=== PATIENT | male | born 1945 | race Hispanic/Latino ===

== ENCOUNTER 2021-11-01 05:49 | Day surgery (SDC) | payer OTHER, MEDICARE ==
[2021-10-25 09:14] LABS: Hematocrit 41.1 % (35.5-45.6); Hemoglobin 13.8 gm/dl (11.8-15.2); Mean Corpuscular HGB Conc 34 % (32-34); Mean Corpuscular Volume 105 fl (84-94); Platelet Count 199 K/mm3 (140-440); Red Blood Count 3.93 M/mm3 (3.65-5.03); Red Cell Distribution Width 12.1 % (13.2-15.2)
[2021-10-25 09:30] LABS: Alanine Aminotransferase 14 units/L (7-56); Albumin 4.1 g/dL (3.9-5); Blood Urea Nitrogen 15 mg/dL (9-20); Hemolysis Index 3
[2021-10-25 09:51] LABS: BUN/Creatinine Ratio 21
[2021-11-01] MEDS ORDERED: LACTATED RINGERS 1,000 ML IV SCH (06:30)
[2021-11-01] MEDS ORDERED: BACTERIOSTATIC SODIUM CHLORIDE 0.9% 30 ML VIAL INFILTRATI ONE (06:34)
--- NOTE | 2021-11-01 07:27 | Anesthesia Day of Surgery ---
Anesthesia Day of Surgery - Day of Surgery Patient Examined: Yes Patient H&P Reviewed: Yes Patient is NPO: Yes
--- NOTE | 2021-11-01 07:27 | Anesthesia Consultation ---
Anesthesia Consult and Med Hx Date of service: 11/01/21 - Airway Anesthetic Teeth Evaluation: Good ROM Head & Neck: Adequate Mental/Hyoid Distance: Adequate Mallampati Class: Class III Intubation Access Assessment: Possibly Difficult - Pre-Operative Health Status ASA Pre-Surgery Classification: ASA3 Proposed Anesthetic Plan: General - Pulmonary Hx Smoking: No Hx Sleep Apnea: Yes (ONLY SLIGHT BUT SNORES-HIGH RISK ON INGRID PRESCREEN.) - Cardiovascular System Hx Hypertension: No - Central Nervous System Hx Back Pain: Yes (NECK,SHOULDER PAIN) Hx Psychiatric Problems: No - Endocrine Hx Renal Disease: Yes (bladder tumor/polyp,elevated K+, creatinine) - Hematic Hx Anemia: No Hx Sickle Cell Disease: No - Other Systems Hx Alcohol Use: No Hx Substance Use: No Hx Cancer: Yes (H/o prostate CA, s/p prostatectomy (2010), radiation)
[2021-11-01] MEDS ORDERED: fentaNYL 100 MCG/2 ML INJ ONE (07:30)
[2021-11-01] MEDS ORDERED: ROCURONIUM 50 MG/5 ML INJ IV ONE (07:30)
[2021-11-01] MEDS ORDERED: LIDOCAINE MPF (2%) 20 MG/1 ML VIAL 5 ML ONE (07:30)
[2021-11-01] MEDS ORDERED: propofoL 200 MG/20 ML VIAL IV ONE (07:30)
[2021-11-01] MEDS ORDERED: HYDROmorphone 1 MG/1 ML INJ IV PRN ×2 (07:43)
[2021-11-01] MEDS ORDERED: ONDANSETRON 4 MG/2 ML INJ IV PRN (07:43)
[2021-11-01] MEDS ORDERED: ceFAZolin/STERILE WATER 2 GM/20 ML SYRINGE IV NR (07:52)
[2021-11-01] MEDS ORDERED: ceFAZolin/Water 2 GM/20 ML 2 GM/20 ML SYRINGE IV ONE (07:55)
[2021-11-01] MEDS ORDERED: FAMOTIDINE 20 MG/2 ML INJ IV ONE (08:00)
[2021-11-01] MEDS ORDERED: ONDANSETRON 4 MG/2 ML INJ ONE (08:43)
--- NOTE | 2021-11-01 09:18 | Operative Report ---
DATE OF SURGERY: 11/01/2021 PREOPERATIVE DIAGNOSIS: Bladder tumor. POSTOPERATIVE DIAGNOSIS: Bladder tumor. OPERATIVE PROCEDURES: Cystoscopy and fulguration of an approximately 0.75 cm tumor. ATTENDING: Hernan Lau MD GEOTECHNICAL ENGINEER: None. ANESTHESIA: General. ESTIMATED BLOOD LOSS: 5 mL. DRAINS: None. COMPLICATIONS: None. SPECIMENS: Urine for cytology. INDICATIONS FOR PROCEDURE: The patient is a 76-year-old man with a history of bladder cancer. On local cystoscopy, he was found to have a small bladder tumor at the dome of his bladder. He presents today for fulguration/tumor biopsy. DESCRIPTION OF PROCEDURE IN DETAIL: After induction of suitable anesthesia and proper positioning and preparation in the dorsal lithotomy position, a cystoscope was used to enter the bladder under direct visualization. 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 Once in the bladder, the scope could not be twisted and could not be manipulated as would normally be done. The tumor was visualized on the anterior wall. A biopsy could not be easily taken. Considering how small the tumor was, cytology from the bladder was taken and the Bugbee electrode was used to completely fulgurate the tumor and the surrounding tissue to ensure a good margin. The fulguration site was visualized and it was hemostatic. The bladder was also inspected again to ensure there were no other tumors, which there were not. The bladder was then drained and the cystoscope was removed. The patient was then awakened from anesthesia and transferred to the recovery room in stable condition. He tolerated the procedure well. He should follow up in approximately 2 to 4 weeks to discuss the cytology results. TID: [id number] RECEIPT: [id number] MEENAKSHI/JUSTINO
[2021-11-01 09:44] VITALS: BP 132/81
[2021-11-01] MEDS ORDERED: HYDROcodone/ACETAMINOPHEN 5-325 MG TAB PO ONE (09:50)
--- NOTE | 2021-11-01 15:39 | Post Anesthesia Evaluation ---
- Post Anesthesia Evaluation Patient Participated: Yes Airway Patent: Yes Stable Respiratory Function: Yes Nausea/Vomiting: No Temp > 96.8F: Yes Pain Manageable: Yes Adequeate Hydration: Yes Anesthesia Complications: Yes Block Receding Appropriately: Not Applicable Patient on Ventilator: No
== END 2021-11-01 10:05 | disposition home or self-care (01) ==
LOC: OR 05:49
PROVIDERS: ATTEND Urology
DX: C67.3 Malignant neoplasm of anterior wall of bladder (principal); G47.30 Sleep apnea, unspecified; E78.00 Pure hypercholesterolemia, unspecified; Z20.822 Contact with and (suspected) exposure to COVID-19; Z79.899 Other long term (current) drug therapy; Z98.49 Cataract extraction status, unspecified eye; Z85.46 Personal history of malignant neoplasm of prostate; Z98.890 Other specified postprocedural states; Z96.652 Presence of left artificial knee joint; Z85.828 Personal history of other malignant neoplasm of skin
CPT/HCPCS: 36415; 52234; 80053; 85027; 88112; J0690; J2405; J2704; J3010; J3490; J7120; U0003

== ENCOUNTER 2022-01-24 07:11 | Day surgery (SDC) | payer OTHER, MEDICARE ==
[~2022-01-24 07:11] MED LIST: WATER FOR IRRIG STERILE 1,500 ML BOTTLE IR ONE; WATER FOR IRRIG STERILE 2000 ML IR ONE
[2022-01-24] MEDS ORDERED: HYDROmorphone 1 MG/1 ML INJ IV PRN ×2 (07:59→09:00)
[2022-01-24] MEDS ORDERED: LACTATED RINGERS 1,000 ML IV SCH (08:00)
--- NOTE | 2022-01-24 08:00 | Anesthesia Day of Surgery ---
Anesthesia Day of Surgery - Day of Surgery Patient Examined: Yes Patient H&P Reviewed: Yes Patient is NPO: Yes
--- NOTE | 2022-01-24 08:02 | Anesthesia Day of Surgery ---
Anesthesia Day of Surgery - Day of Surgery Patient Examined: Yes Patient H&P Reviewed: Yes Patient is NPO: Yes
--- NOTE | 2022-01-24 08:09 | Anesthesia Consultation ---
Anesthesia Consult and Med Hx Date of service: 01/24/22 - Airway Anesthetic Teeth Evaluation: Crowns ROM Head & Neck: Adequate Mental/Hyoid Distance: Adequate Mallampati Class: Class II Intubation Access Assessment: Good - Pre-Operative Health Status ASA Pre-Surgery Classification: ASA2 Proposed Anesthetic Plan: General - Pulmonary Hx Smoking: No Hx Sleep Apnea: Yes (INGRID PRE SCREEN HIGH RISK) - Cardiovascular System Hx Hypertension: No - Central Nervous System Hx Back Pain: Yes (NECK,SHOULDER PAIN) Hx Psychiatric Problems: No - Hematic Hx Anemia: Yes (NOT RECENT) Hx Sickle Cell Disease: No - Other Systems Hx Alcohol Use: No Hx Substance Use: No Hx Cancer: Yes (Bladder. SKIN CANCER - REMOVED IN OFFICE) Hx Obesity: No - Additional Comments Anesthesia Medical History Comments: Was here [id number]
[2022-01-24] MEDS ORDERED: GENTAMICIN 80 MG in SODIUM CHLORIDE 0.9% 100 ML IV SCH (08:30)
[2022-01-24] MEDS ORDERED: GENTAMICIN/NS 80 MG/100 ML 100 ML IV SCH (09:00)
[2022-01-24] MEDS ORDERED: ceFAZolin/STERILE WATER 2 GM/20 ML SYRINGE IV NR (09:00)
[2022-01-24] MEDS ORDERED: ONDANSETRON 4 MG/2 ML INJ IV PRN (09:00)
[2022-01-24] MEDS ORDERED: ceFAZolin/Water 2 GM/20 ML 2 GM/20 ML SYRINGE IV NR (09:00)
[2022-01-24] MEDS ORDERED: propofoL 200 MG/20 ML VIAL IV ONE (09:55)
[2022-01-24] MEDS ORDERED: WATER FOR IRRIG STERILE 2000 ML IR ONE (10:10)
[2022-01-24] MEDS ORDERED: WATER FOR IRRIG STERILE 1,500 ML BOTTLE IR ONE (10:10)
[2022-01-24] MEDS ORDERED: fentaNYL 100 MCG/2 ML INJ ONE (10:14)
[2022-01-24 11:20] VITALS: BP 127/65
[2022-01-24] MEDS ORDERED: oxyCODONE /ACETAMINOPHEN 5-325MG TAB PO PRN (11:21)
--- NOTE | 2022-01-24 13:13 | Operative Report ---
DATE OF SURGERY: 01/24/2022 TIME OF PROCEDURE: Approximately 10:00 a.m. PREOPERATIVE DIAGNOSIS: Recurrent hematuria. POSTOPERATIVE DIAGNOSES: 1. Recurrent hematuria. 2. Radiation cystitis. OPERATIVE PROCEDURES: Cystoscopy, fulguration of bleeding vessels. ATTENDING: Hernan Lau MD YARD SPECIALIST: None. ANESTHESIA: General. ESTIMATED BLOOD LOSS: 10 mL. DRAINS: An 18-Welsh Rader catheter. SPECIMENS: None. COMPLICATIONS: None. INDICATIONS FOR PROCEDURE: The patient is a 76-year-old man with a long history of voiding dysfunction. He also had a bladder tumor that was fulgurated. He had extensive bladder tumor. He had problems with urinary retention and then hematuria. The urinary retention has been managed with a Rader catheter. However, with the Rader catheter in place, the patient has had issues with hematuria. He was brought to the operating room today for a cystoscopy and fulguration and biopsy as needed. DESCRIPTION OF PROCEDURE IN DETAIL: After induction of suitable anesthesia and proper positioning and preparation in the dorsal lithotomy position, a cystoscope was used to enter the bladder under direct visualization. The patient had a prior prostatectomy with radiotherapy and his bladder neck was fixed and did not have a mobility due to these desmoplastic changes from therapy. A cystoscopic exam did not show any new tumors. He did have very friable bladder tissue with many telangiectasias. He just had a field effect in terms a lot of these vessels were oozing. I fulgurated as many as possible and I refulgurated the bladder tumor site. The bladder tumor site was actually hemostatic. Once I felt that I had done as much fulguration as possible, the cystoscope was removed and a Rader catheter was placed. The Rader catheter was attached to gravity drainage. I will start the patient on antibiotics as well as Elmiron for his radiation cystitis. Ultimately, I think the cause of his hematuria is simply radiation cystitis. The patient was then awakened from anesthesia and transferred to recovery room in stable condition. He tolerated the procedure well. He will come to the office Saturday for catheter removal. TID: [id number] RECEIPT: [id number] MEENAKSHI/HANNA/KEANU
== END 2022-01-24 11:55 | disposition home or self-care (01) ==
LOC: OR 07:11
PROVIDERS: ATTEND Urology
DX: N30.41 Irradiation cystitis with hematuria (principal); E78.00 Pure hypercholesterolemia, unspecified; G47.30 Sleep apnea, unspecified; Z79.899 Other long term (current) drug therapy; Z79.82 Long term (current) use of aspirin; Z98.49 Cataract extraction status, unspecified eye; Z85.46 Personal history of malignant neoplasm of prostate; Z98.890 Other specified postprocedural states; Z96.652 Presence of left artificial knee joint; Z85.51 Personal history of malignant neoplasm of bladder; Z85.828 Personal history of other malignant neoplasm of skin; Z86.2 Personal history of diseases of the blood and blood-forming organs and certain disorders involving the immune mechanism
CPT/HCPCS: 52224; J0690; J1580; J2704; J3010; J7120